=== PATIENT | male | born 1995 | race Hispanic/Latino ===

== ENCOUNTER 2020-12-20 18:09 | Emergency (ER) | payer OTHER | END 2020-12-20 18:48 | disposition home or self-care (01) | LOC: MADERS 18:09 | DX: F41.9 Anxiety disorder, unspecified (principal); R07.9 Chest pain, unspecified; R06.02 Shortness of breath; R20.2 Paresthesia of skin; J45.909 Unspecified asthma, uncomplicated; F17.200 Nicotine dependence, unspecified, uncomplicated; Z79.899 Other long term (current) drug therapy | CPT/HCPCS: 71046; 93005 ==